=== PATIENT | male | born 2000 | race Caucasian/White ===

== ENCOUNTER 2022-03-18 23:13 | Inpatient (IN) ==
[2022-03-18] MEDS ORDERED: KETOROLAC 30 MG/1 ML VIAL IV STA (23:37)
[2022-03-18] MEDS ORDERED: ONDANSETRON 4 MG/2 ML VIAL IV STA (23:37)
[2022-03-18] MEDS ORDERED: SODIUM CHLORIDE 0.9% 1,000 ML IV STA (23:37)
[2022-03-18] MEDS ORDERED: HYDROmorphone 1 MG/1 ML SYRINGE IV STA (23:37)
[2022-03-19 00:23] LABS: Albumin 4.6 G/DL (3.4-5.0); Bilirubin,Total 0.6 MG/DL (0.20-1.00); Calcium 9.3 MG/DL (8.5-10.1); Osmolality,Calculated 269.2 MOS/KG (273-304); Potassium 3.6 MMOL/L (3.5-5.1); Total Protein 8.4 G/DL (6.4-8.2)
[2022-03-19 00:27] LABS: Basophils # 0.1 10*3/uL (0.0-0.2); Basophils % 0.2 % (0.0-0.8); Eosinophils # 0.1 10*3/uL (0.0-0.87); Eosinophils % 0.2 % (0.00-10.9); Hematocrit 46.2 VOL% (42.0-52.0); Hemoglobin 15.8 GM/DL (14.0-18.0); Immature Granulocytes % 0.6 %; Immature Granulocytes Absolute 0.12 #; Lymphocytes # 1.4 10*3/uL (1.4-4.0); Lymphocytes % 6.8 % (21.2-54.2); Mean Corpuscular HGB Conc 34.2 GM/DL (32-36); Mean Corpuscular Volume 89.2 FL (87-102); Mean Platelet Volume 10.1 FL (9.6-12.0); Monocytes # 1.6 10*3/uL (0.11-0.8); Monocytes % 7.9 % (1.7-12.7); Neutrophils % 84.3 % (38.7-73.9); Platelet Count 260 T/CUMM (130-400); Red Blood Count 5.18 MC/CUMM (3.8-5.5); Red Cell Distribution Width 12.1 % (9.3-17.3); White Blood Count 20.6 T/CUMM (4-12)
[2022-03-19] MEDS ORDERED: PIPERACILLIN/TAZOBACTAM 3,375 MG in SODIUM CHLORIDE 0.9% 100 ML IV STA (01:23)
[2022-03-19] MEDS ORDERED: HYDROmorphone 1 MG/1 ML SYRINGE IV ONE (01:41)
[2022-03-19 01:47] LABS: Mucus,Urine Occasional /LPF (Occasional); RBC,Urine 2 /HPF (0-4); Urine Appearance Clear (Clear); Urine Color Yellow (Yellow); Urine pH 7.5 (4.5-8.0)
[2022-03-19 01:48] LABS: Bilirubin,Urine Negative (Negative); Blood, Urine Negative (Negative); Glucose,Urine (UA) Negative (Negative); Ketones,Urine Trace mg/dL (Negative); Nitrite,Urine Negative (Negative); Protein,Urine Negative (Negative); Urine Urobilinogen 0.2 eU/dL (<2.0)
[2022-03-19] MEDS ORDERED: HYDROmorphone 1 MG/1 ML SYRINGE IV PRN (01:49)
[2022-03-19] MEDS: ONDANSETRON 4 MG/2 ML VIAL IV PRN ×2 (02:20→16:25)
[2022-03-19] MEDS ORDERED: SUCCINYLCHOLINE 200 MG/10 ML VIAL ONE (08:47)
[2022-03-19] MEDS ORDERED: ONDANSETRON 4 MG/2 ML VIAL ONE (08:47)
[2022-03-19] MEDS ORDERED: LIDOCAINE 2% 5 ML VIAL ONE (08:47)
[2022-03-19] MEDS ORDERED: propofoL 200 MG/20 ML VIAL IV ONE (08:47)
[2022-03-19] MEDS ORDERED: ROCURONIUM 50 MG/5 ML VIAL IV ONE (08:47)
[2022-03-19] MEDS ORDERED: MIDAZOLAM 2 MG/2 ML VIAL ONE (08:48)
[2022-03-19] MEDS ORDERED: fentaNYL 100 MCG/2 ML VIAL ONE (08:48)
[2022-03-19] MEDS ORDERED: PIPERACILLIN/TAZOBACTAM 3,375 MG in SODIUM CHLORIDE 0.9% 100 ML IV SCH (09:00)
[2022-03-19] MEDS ORDERED: LIDOCAINE 1%/EPI INJ 20 ML VIAL ONE (10:29)
[2022-03-19] MEDS ORDERED: BUPIVACAINE MPF 0.25% 10 ML VIAL ONE (10:29)
[2022-03-19] MEDS ORDERED: TISSUE ADHESIVE 1 EACH APPLICATOR TOP ONE (10:29)
[2022-03-19] MEDS ORDERED: LACTATED RINGERS 1,000 ML IV SCH (10:30)
[2022-03-19] MEDS ORDERED: GLYCOPYRROLATE 0.4 MG/2 ML VIAL ONE (11:35)
[2022-03-19] MEDS ORDERED: NEOSTIGMINE 10 MG/10 ML VIAL ONE (11:36)
[2022-03-19] MEDS ORDERED: MEPERIDINE 25 MG/1 ML VIAL ONE (11:56)
[2022-03-19] MEDS ORDERED: MEPERIDINE 25 MG/1 ML VIAL IV ONE (12:00)
[2022-03-19] MEDS: PANTOPRAZOLE 40 MG TABLET PO SCH (14:53)
[2022-03-19] MEDS: SODIUM CHLORIDE 0.9% 1,000 ML IV SCH ×3 (14:53→18:10)
[2022-03-19] MEDS: ACETAMINOPHEN 325 MG TABLET PO PRN ×2 (19:40→20:26)
[2022-03-20] MEDS: ACETAMINOPHEN 325 MG TABLET PO PRN (05:49)
[2022-03-20 08:16] VITALS: BP 99/45
[2022-03-20] MEDS: PANTOPRAZOLE 40 MG TABLET PO SCH (08:50)
[2022-03-20] MEDS: SODIUM CHLORIDE 0.9% 1,000 ML IV SCH (08:53)
== END 2022-03-20 09:55 | disposition home or self-care (01) | DRG 343 ==
LOC: N.ED 23:13 → N.3E 03-19 01:24
PROVIDERS: ADMIT Surgery; ATTEND Surgery